=== PATIENT | male | born 1995 | race American Indian/Alaskan Native ===

== ENCOUNTER 2018-02-28 20:18 | Emergency (ER) | payer SELFPAY ==
[2018-02-28 20:24] VITALS: BP 130/53
== END 2018-03-01 00:57 | disposition left against medical advice (07) ==
LOC: ED 20:18
DX: H57.11 Ocular pain, right eye (principal); Z53.21 Procedure and treatment not carried out due to patient leaving prior to being seen by health care provider

== ENCOUNTER 2018-04-04 20:00 | Emergency (ER) | payer SELFPAY | END 2018-04-04 20:15 | disposition left against medical advice (07) | LOC: ED 20:00 | DX: R10.30 Lower abdominal pain, unspecified (principal); Z53.21 Procedure and treatment not carried out due to patient leaving prior to being seen by health care provider ==